=== PATIENT | female | born 1940 | race Two or more races ===

== ENCOUNTER 2018-01-27 08:42 | Outpatient (CLI) | payer OTHER | END 2018-01-27 09:43 | disposition home or self-care (01) | LOC: SONOGRAMA 08:42 → MAMO-SONO 10:00 | DX: R10.9 Unspecified abdominal pain (principal) ==

== ENCOUNTER 2018-02-16 10:51 | Outpatient (CLI) | payer OTHER | END 2018-02-16 11:03 | disposition home or self-care (01) | LOC: RAD 10:51 | DX: M62.838 Other muscle spasm (principal) ==

== ENCOUNTER → 2018-07-25 | Outpatient (CLI) | payer OTHER | END | disposition home or self-care (01) | LOC: RAD 09:45 | DX: M19.011 Primary osteoarthritis, right shoulder (principal) ==

== ENCOUNTER 2018-08-20 10:38 | Outpatient (CLI) | payer OTHER | END 2018-08-20 10:43 | disposition home or self-care (01) | LOC: SONOGRAMA 10:38 | DX: M75.101 Unspecified rotator cuff tear or rupture of right shoulder, not specified as traumatic (principal) ==

== ENCOUNTER 2020-01-07 10:36 | Outpatient (CLI) | payer OTHER | END 2020-01-07 10:56 | disposition home or self-care (01) | LOC: TOM 10:36 | DX: G40.509 Epileptic seizures related to external causes, not intractable, without status epilepticus (principal) ==

== ENCOUNTER → 2020-03-18 | Outpatient (CLI) | payer OTHER | END | disposition home or self-care (01) | LOC: SONOGRAMA 15:52 | DX: E07.89 Other specified disorders of thyroid (principal) ==

== ENCOUNTER 2021-10-11 08:21 | Outpatient (CLI) | payer OTHER | END 2021-10-11 08:26 | disposition home or self-care (01) | LOC: SONOGRAMA 08:21 | PROVIDERS: ATTEND Internal Medicine Cardiovascular Disease | DX: R10.84 Generalized abdominal pain (principal) ==

== ENCOUNTER 2024-08-29 13:16 | Outpatient (CLI) | payer OTHER | END 2024-08-29 13:20 | disposition home or self-care (01) | LOC: RAD 13:16 | PROVIDERS: ATTEND Internal Medicine Cardiovascular Disease | DX: S79.912A Unspecified injury of left hip, initial encounter (principal) ==